=== PATIENT | male | born 1980 | race American Indian/Alaskan Native ===

== ENCOUNTER 2019-03-14 08:40 | Emergency (ER) | payer MEDICAID ==
[2019-03-14 08:46] VITALS: BP 129/75
[2019-03-14] MEDS ORDERED: IBUPROFEN PO ONE (08:59)
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
== END 2019-03-14 10:07 | disposition home or self-care (01) ==
LOC: ED 08:40
DX: S30.0XXA Contusion of lower back and pelvis, initial encounter (principal); Y04.8XXA Assault by other bodily force, initial encounter; Y93.89 Activity, other specified; Y92.89 Other specified places as the place of occurrence of the external cause; Y99.8 Other external cause status
CPT/HCPCS: 72100; 99283

== ENCOUNTER 2019-04-05 13:53 | Emergency (ER) | payer MEDICAID ==
[2019-04-05 14:29] VITALS: BP 133/100
--- NOTE | 2019-04-05 14:29 | Event Note ---
ED Screening Note Date of service: 04/05/19 Time: 14:27 ED Screening Note: 39 y/o male come in for 3 days history of tooth pain. He is aware that he has a bad tooth. Has been taking pain. PMH no Meds none. No dentist. This initial assessment/diagnostic orders/clinical plan/treatment(s) is/are subject to change based on patients health status, clinical progression and re- assessment by fellow clinical providers in the ED. Further treatment and workup at subsequent clinical providers discretion. Patient/guardian urged not to elope from the ED as their condition may be serious if not clinically assessed and managed. Initial orders include:
--- NOTE | 2019-04-05 14:34 | Emergency Department Report ---
ED ENT HPI - General Chief complaint: Dental/Oral Stated complaint: RT SIDE TOOTHACHE Time Seen by Provider: 04/05/19 14:26 Source: patient Mode of arrival: Ambulatory Limitations: No Limitations - History of Present Illness Initial comments: 39 y/o male come in for 3 days history of tooth pain. He is aware that he has a bad tooth. Has been taking pain. PMH no Meds none. No dentist. MD complaint: tooth pain Onset/Timin -: days(s) Location: lower lip Quality: aching, sharp Consistency: constant Improves with: none Context- Dental: history of dental caries, poor dental care Associated Symptoms: toothache - Related Data Previous Rx's Medication Instructions Recorded Last Taken Type Ziprasidone [Geodon] 40 mg PO BID #60 capsule 11/26/14 Unknown Rx Amoxicillin [Amoxicillin TAB] 875 mg PO BID #20 tablet 04/05/19 Unknown Rx Ibuprofen [Motrin 600 MG tab] 600 mg PO Q8H PRN #30 tablet 04/05/19 Unknown Rx Allergies Allergy/AdvReac Type Severity Reaction Status Date / Time No Known Allergies Allergy Verified 11/24/14 13:43 ED Dental HPI - General Chief complaint: Dental/Oral Stated complaint: RT SIDE TOOTHACHE Time Seen by Provider: 04/05/19 14:26 Source: patient Mode of arrival: Ambulatory Limitations: No Limitations - Related Data Previous Rx's Medication Instructions Recorded Last Taken Type Ziprasidone [Geodon] 40 mg PO BID #60 capsule 11/26/14 Unknown Rx Amoxicillin [Amoxicillin TAB] 875 mg PO BID #20 tablet 04/05/19 Unknown Rx Ibuprofen [Motrin 600 MG tab] 600 mg PO Q8H PRN #30 tablet 04/05/19 Unknown Rx Allergies Allergy/AdvReac Type Severity Reaction Status Date / Time No Known Allergies Allergy Verified 11/24/14 13:43 ED Review of Systems ROS: Stated complaint: RT SIDE TOOTHACHE Other details as noted in HPI Comment: All other systems reviewed and negative ED Past Medical Hx - Past Medical History Previous Medical History?: Yes Hx Hypertension: Yes Hx Diabetes: Yes Hx Psychiatric Treatment: No Additional medical history: schizophrenia off meds - Surgical History Past Surgical History?: Yes Additional Surgical History: HERNIA REPAIR - Social History Smoking Status: Current Every Day Smoker Substance Use Type: Alcohol, Marijuana - Medications Home Medications: Home Medications Medication Instructions Recorded Confirmed Last Taken Type Ziprasidone [Geodon] 40 mg PO BID #60 capsule 11/26/14 Unknown Rx Amoxicillin [Amoxicillin TAB] 875 mg PO BID #20 tablet 04/05/19 Unknown Rx Ibuprofen [Motrin 600 MG tab] 600 mg PO Q8H PRN #30 tablet 04/05/19 Unknown Rx ED Physical Exam - General Limitations: No Limitations General appearance: alert, in no apparent distress - Head Head exam: Present: atraumatic, normocephalic - Eye Eye exam: Present: normal appearance - Expanded ENT Exam Expanded Teeth exam: Present: dental caries, gingival enlargement - Respiratory Respiratory exam: Absent: rhonchi - Neurological Exam Neurological exam: Present: alert, oriented X3 - Psychiatric Psychiatric exam: Present: normal affect, normal mood - Skin Skin exam: Present: warm, dry, intact, normal color. Absent: rash ED Course Vital Signs 04/05/19 14:26 Temperature 97.7 F Pulse Rate 56 L Blood Pressure 133/100 O2 Sat by Pulse 98 Oximetry ED Medical Decision Making - Medical Decision Making 39 y/o male come in for 3 days history of tooth pain. He is aware that he has a bad tooth. Has been taking pain. PMH no Meds none. No dentist. Rx for amoxicillin and ibuprofen Critical care attestation.: If time is entered above; I have spent that time in minutes in the direct care of this critically ill patient, excluding procedure time. ED Disposition Clinical Impression: Pain, dental Disposition: DC-01 TO HOME OR SELFCARE Is pt being admited?: No Does the pt Need Aspirin: No Condition: Stable Instructions: Toothache (ED) Additional Instructions: take medication as prescribed. Prescriptions: Amoxicillin [Amoxicillin TAB] 875 mg PO BID #20 tablet Ibuprofen [Motrin 600 MG tab] 600 mg PO Q8H PRN #30 tablet PRN Reason: Pain Referrals: [facility] [Outside] - 3-5 Days [facility] [Outside] - 3-5 Days
== END 2019-04-05 14:51 | disposition home or self-care (01) ==
LOC: ED 13:53
DX: K08.89 Other specified disorders of teeth and supporting structures (principal); I10 Essential (primary) hypertension; E11.9 Type 2 diabetes mellitus without complications; F20.9 Schizophrenia, unspecified; F17.200 Nicotine dependence, unspecified, uncomplicated; F12.10 Cannabis abuse, uncomplicated; Z79.899 Other long term (current) drug therapy
CPT/HCPCS: 99282

== ENCOUNTER 2019-08-23 15:22 | Emergency (ER) | payer MEDICAID ==
[2019-08-23] MEDS ORDERED: IBUPROFEN 600 MG TAB PO ONE ×2 (16:15→16:17)
--- NOTE | 2019-08-23 16:17 | Emergency Department Report ---
Blank Doc - Documentation Documentation: 39-year-old male that presents with left flank pain.\ This initial assessment/diagnostic orders/clinical plan/treatment(s) is/are subject to change based on patient's health status, clinical progression and re- assessment by fellow clinical providers in the ED. Further treatment and workup at subsequent clinical providers discretion. Patient/guardians urged not to elope from the ED as their condition may be serious if not clinically assessed and managed. Initial orders include: 1- Patient sent to [facility] for further evaluation and treatment 2- labs 3- UA 4- motrin-RN to repeat vitals
[2019-08-23 16:46] LABS: Basophils % (Auto) 0.3 % (0.0-1.8); Eosinophils % (Auto) 0.2 % (0.0-4.3); Hematocrit 39.2 % (35.5-45.6); Lymphocytes # (Auto) 0.3 K/mm3 (1.2-5.4); Mean Corpuscular HGB Conc 33 % (32-34); Mean Corpuscular Volume 93 fl (84-94); Monocytes # (Auto) 0.5 K/mm3 (0.0-0.8); Monocytes % (Auto) 8.9 % (0.0-7.3); Platelet Count 223 K/mm3 (140-440); Red Cell Distribution Width 16.1 % (13.2-15.2)
[2019-08-23 16:58] LABS: Bilirubin,Urine NEG (Negative); Blood,Urine SM (Negative); Color,Urine Yellow (Yellow); Mucus,Urine 1+ /HPF
[2019-08-23 17:00] LABS: BUN/Creatinine Ratio 11; Blood Urea Nitrogen 9 mg/dL (9-20); Calcium 8.9 mg/dL (8.4-10.2); Hemolysis Index 4
--- NOTE | 2019-08-23 17:50 | XRay Report ---
CHEST 2 VIEWS INDICATION / CLINICAL INFORMATION: fever flank pain. COMPARISON: None available. FINDINGS: SUPPORT DEVICES: None. HEART / MEDIASTINUM: No significant abnormality. LUNGS / PLEURA: No significant pulmonary or pleural abnormality. No pneumothorax. ADDITIONAL FINDINGS: No significant additional findings. IMPRESSION: 1. No acute findings. Signer Name: Gage Ryan MD Signed: 08/23/2019 5:46 PM Workstation Name: [id number]
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
--- NOTE | 2019-08-23 19:44 | Cat Scan Report ---
CT abdomen pelvis w con INDICATION: fever back pain. TECHNIQUE: All CT scans at this location are performed using the following dose modulation technique: Automated exposure control. CONTRAST: Isovue-300, 100 cc IV injection. COMPARISON: None available. CT ABDOMEN: Evaluation of the lung bases demonstrates mild tree-in-bud inflammation at the lower lobe s. The parenchymal organs are unremarkable in appearance. Negative for abdominal mass, fluid or inflamma tion. The bowel is not dilated or thickened. CT PELVIS: Negative for mass, fluid or inflammation. A small amount of free fluid is noted. IMPRESSION: 1. Mild basilar pneumonia. 2. Small amount of pelvic free fluid. Signer Name: Antonio Kirkland MD Signed: 08/23/2019 7:39 PM Workstation Name: [id number]
[2019-08-23 20:15] VITALS: BP 112/55
== END 2019-08-23 20:15 | disposition home or self-care (01) ==
LOC: ED 15:22
DX: J18.9 Pneumonia, unspecified organism (principal); M54.5 Low back pain; I10 Essential (primary) hypertension; E11.9 Type 2 diabetes mellitus without complications; F20.9 Schizophrenia, unspecified; F17.200 Nicotine dependence, unspecified, uncomplicated; F14.10 Cocaine abuse, uncomplicated; Z98.890 Other specified postprocedural states; Z79.1 Long term (current) use of non-steroidal anti-inflammatories (NSAID); Z79.2 Long term (current) use of antibiotics; Z79.899 Other long term (current) drug therapy
CPT/HCPCS: 36415; 71046; 74177; 80048; 81001; 82140; 85025; 87040; 87086; 99284; Q9967

== ENCOUNTER 2020-05-29 18:38 | Emergency (ER) | payer MEDICAID ==
[2020-05-29 18:54] VITALS: BP 121/60
[2020-05-29] MEDS ORDERED: IBUPROFEN 800 MG TAB PO ONE (21:28)
--- NOTE | 2020-05-29 21:47 | Emergency Department Report ---
ED Back Pain/Injury HPI - General Chief Complaint: Back Pain/Injury Stated Complaint: BACK PAIN Time Seen by Provider: 05/29/20 21:26 Source: patient Limitations: No Limitations - History of Present Illness Initial Comments: Pt is a 40 y/o aam with hx of low back pain , DMII, and HTN who presents for low back strain after lifting furniture 2 days ago. pt denies fall or trauma, pt states he felt pull in his low back while lifting. pain is described as 4/10 aching burning. pain radiates to left buttocks, pt denies numbess, no weakness , no paralysis. pain is exacerbated by bending , twisting and bending. pain is relieved by rest. pt denies dysuria, frequency, or urgency. There is no hematuria, remains ambulatory to baseline with steady gait per patient. pt denies loss or decrease in bowel or bladder function. MD Complaint: back injury Similar Symptoms Previously: Yes Place: home - Related Data Previous Rx's Medication Instructions Recorded Last Taken Type Ziprasidone [Geodon] 40 mg PO BID #60 capsule 11/26/14 Unknown Rx Amoxicillin [Amoxicillin TAB] 875 mg PO BID #20 tablet 04/05/19 Unknown Rx Ibuprofen [Motrin 600 MG tab] 600 mg PO Q8H PRN #30 tablet 04/05/19 Unknown Rx Ciprofloxacin HCl [Ciprofloxacin 500 mg PO Q12HR #20 tab 08/23/19 Unknown Rx TAB] HYDROcodone/APAP 5-325 [Asher 1 - 2 each PO Q6HR PRN #10 tablet 08/23/19 Unknown Rx 5/325] Ibuprofen [Motrin 800 MG tab] 800 mg PO Q8HR PRN #20 tablet 08/23/19 Unknown Rx Cyclobenzaprine [Flexeril] 10 mg PO BID PRN #20 tablet 05/29/20 Unknown Rx Menthol/Camphor [Linden Schurz 1 applicatio TP TID PRN #1 tube 05/29/20 Unknown Rx Ointment] Naproxen 500 mg PO BID PRN #30 tablet 05/29/20 Unknown Rx Allergies Allergy/AdvReac Type Severity Reaction Status Date / Time No Known Allergies Allergy Verified 11/24/14 13:43 ED Review of Systems ROS: Stated complaint: BACK PAIN Other details as noted in HPI Constitutional: denies: chills, fever Eyes: denies: eye pain, eye discharge, vision change ENT: denies: ear pain, throat pain Respiratory: denies: cough, shortness of breath, wheezing Cardiovascular: denies: chest pain, palpitations Endocrine: no symptoms reported Gastrointestinal: denies: abdominal pain, nausea, diarrhea Genitourinary: denies: urgency, dysuria Musculoskeletal: back pain, arthralgia Skin: denies: rash, lesions Neurological: denies: headache, weakness, paresthesias, vertigo Psychiatric: denies: anxiety, depression Hematological/Lymphatic: denies: easy bleeding, easy bruising ED Past Medical Hx - Past Medical History Hx Hypertension: Yes Hx Diabetes: Yes Hx Psychiatric Treatment: No Additional medical history: schizophrenia off meds - Surgical History Additional Surgical History: HERNIA REPAIR - Social History Smoking Status: Current Every Day Smoker Substance Use Type: Cocaine - Medications Home Medications: Home Medications Medication Instructions Recorded Confirmed Last Taken Type Ziprasidone [Geodon] 40 mg PO BID #60 capsule 11/26/14 Unknown Rx Amoxicillin [Amoxicillin TAB] 875 mg PO BID #20 tablet 04/05/19 Unknown Rx Ibuprofen [Motrin 600 MG tab] 600 mg PO Q8H PRN #30 tablet 04/05/19 Unknown Rx Ciprofloxacin HCl [Ciprofloxacin 500 mg PO Q12HR #20 tab 08/23/19 Unknown Rx TAB] HYDROcodone/APAP 5-325 [Asher 1 - 2 each PO Q6HR PRN #10 tablet 08/23/19 Unknown Rx 5/325] Ibuprofen [Motrin 800 MG tab] 800 mg PO Q8HR PRN #20 tablet 08/23/19 Unknown Rx Cyclobenzaprine [Flexeril] 10 mg PO BID PRN #20 tablet 05/29/20 Unknown Rx Menthol/Camphor [Linden Schurz 1 applicatio TP TID PRN #1 tube 05/29/20 Unknown Rx Ointment] Naproxen 500 mg PO BID PRN #30 tablet 05/29/20 Unknown Rx ED Physical Exam - General Limitations: No Limitations General appearance: alert, in no apparent distress - Head Head exam: Present: atraumatic, normocephalic - Eye Eye exam: Present: normal appearance - ENT ENT exam: Present: mucous membranes moist - Neck Neck exam: Present: normal inspection, full ROM. Absent: tenderness - Respiratory Respiratory exam: Present: normal lung sounds bilaterally. Absent: respiratory distress, wheezes, stridor - Cardiovascular Cardiovascular Exam: Present: regular rate, normal rhythm, normal heart sounds. Absent: systolic murmur, diastolic murmur, rubs, gallop - GI/Abdominal GI/Abdominal exam: Present: soft, normal bowel sounds. Absent: distended, tenderness - Rectal Rectal exam: Present: deferred - Extremities Exam Extremities exam: Present: normal inspection, full ROM. Absent: tenderness - Back Exam Back exam: Present: normal inspection, muscle spasm, vertebral tenderness. Absent: CVA tenderness (R), CVA tenderness (L) - Expanded Back Exam Expanded Back exam: Absent: saddle anesthesia Back exam: Positive Straight Leg Raise: Left, Negative Straight Leg Raising: Right - Neurological Exam Neurological exam: Present: alert, oriented X3, CN II-XII intact, normal gait, reflexes normal. Absent: motor sensory deficit - Expanded Neurological Exam Expanded Patient oriented to: Present: person, place, time Speech: Present: fluid speech Motor strength exam: RLE: 5, LLE: 5 DTR: ankle (R): 2+, ankle (L): 2+ Best Eye Response (Darin): (4) open spontaneously Best Motor Response (Darin): (6) obeys commands Best Verbal Response (Norton): (5) oriented Norton Total: 15 - Psychiatric Psychiatric exam: Present: normal affect, normal mood - Skin Skin exam: Present: warm, dry, intact, normal color. Absent: rash ED Course Vital Signs 05/29/20 18:51 Temperature 98.1 F Pulse Rate 72 Respiratory 20 Rate Blood Pressure 121/60 [Right] O2 Sat by Pulse 98 Oximetry ED Medical Decision Making - Medical Decision Making pain is improved with nsaids given in ed. pt is in usual location, and intensity, as previous low back strains. pt denies urinary symptoms, there has been no trauma or fall, low back muscular pain is reproducible to deep palpation & Straight leg left. There are no neuro symptomns, This is likely low back strain, plan, dc to home , back exercises, moist heat therapy, nsaids prn, follow up with primary care doctor in 2-3 days. Critical care attestation.: If time is entered above; I have spent that time in minutes in the direct care of this critically ill patient, excluding procedure time. ED Disposition Clinical Impression: Low back strain Qualifiers: Encounter type: initial encounter Qualified Code(s): S39.012A - Strain of muscle, fascia and tendon of lower back, initial encounter Disposition: TO HOME OR SELFCARE Is pt being admited?: No Does the pt Need Aspirin: No Condition: Stable Instructions: Low Back Strain (ED), Core Strengthening Exercises (GEN) Prescriptions: Cyclobenzaprine [Flexeril] 10 mg PO BID PRN #20 tablet PRN Reason: Muscle Spasm Naproxen 500 mg PO BID PRN #30 tablet PRN Reason: Pain Menthol/Camphor [Linden Schurz Ointment] 1 applicatio TP TID PRN #1 tube PRN Reason: PAIN Referrals: RICHARD SARMIENTO MD [Staff Physician] - 3-5 Days Forms: Work/School Release Form(ED) Time of Disposition: 22:01
== END 2020-05-29 22:05 | disposition home or self-care (01) ==
LOC: ED 18:38
DX: S39.012A Strain of muscle, fascia and tendon of lower back, initial encounter (principal); I10 Essential (primary) hypertension; E11.9 Type 2 diabetes mellitus without complications; F20.9 Schizophrenia, unspecified; F17.200 Nicotine dependence, unspecified, uncomplicated; F14.10 Cocaine abuse, uncomplicated; Z79.1 Long term (current) use of non-steroidal anti-inflammatories (NSAID); Z79.2 Long term (current) use of antibiotics; Z79.899 Other long term (current) drug therapy; X50.0XXA Overexertion from strenuous movement or load, initial encounter; Y93.89 Activity, other specified; Y92.89 Other specified places as the place of occurrence of the external cause; Y99.8 Other external cause status
CPT/HCPCS: 99282

== ENCOUNTER 2020-06-21 12:57 | Emergency (ER) | payer MEDICAID ==
[2020-06-21 13:37] VITALS: BP 118/66
--- NOTE | 2020-06-21 16:36 | Emergency Department Report ---
Chief Complaint: Hyperglycemia Stated Complaint: HYPERGLYCEMIA Time Seen by Provider: 06/21/20 16:33 - HPI History of Present Illness: Patient is a 40-year-old male presents emergency room with complaints of a blood sugar check. He states that he was previously diagnosed with diabetes and used to be on medication but has not taken medication since approximately 2014. He denies any symptoms at all. He denies any nausea, vomiting, diarrhea, fever, cough, abdominal pain, chest pain, shortness of breath, urinary symptoms. He denies any other past medical history. No allergies to medications. He denies any SI or HI. Vitals are normal Blood glucose point of care performed by nurse and is 81 On exam: Non toxic appearing, no acute distress atraumatic, normocephalic normal appearance of the eyes, EOMI, no periorbital edema or ecchymosis moist mucus membranes No respiratory distress, no accessory muscle use A&O x4, no focal neuro deficit skin is warm, dry Patient is presenting for a blood sugar check He denies any symptoms His blood glucose is 81 Advised patient that this is a normal reading and where his blood sugar should be Patient will be referred to primary care doctor Discussed strict return precautions Medical screen examination performed and there is no threat to life or limb at this time - Exam Vital Signs: Vital Signs 06/21/20 13:35 Temperature 98.6 F Pulse Rate 63 Respiratory 18 Rate Blood Pressure 118/66 [Right] O2 Sat by Pulse 98 Oximetry MSE screening note: Focused history and physical exam performed. ED Disposition for MSE Clinical Impression: Encounter for medical screening examination Disposition: MED SCREENING EXAM-LEFT Is pt being admited?: No Does the pt Need Aspirin: No Condition: Stable Additional Instructions: Increase your water intake. Follow-up with a primary care doctor. Return to emergency room for any new or worsening symptoms. Referrals: MANGO PATRICIA MD [Staff Physician] - 2-3 Days [facility] [Provider Group] - 2-3 Days [facility], [LAB/CONTRACT] - 2-3 Days Time of Disposition: 16:35 Print Language: SURINAMESE
== END 2020-06-21 17:03 | disposition left against medical advice (07) ==
LOC: ED 12:57
DX: E11.65 Type 2 diabetes mellitus with hyperglycemia (principal); Z00.00 Encounter for general adult medical examination without abnormal findings; Z53.21 Procedure and treatment not carried out due to patient leaving prior to being seen by health care provider
CPT/HCPCS: 82962

== ENCOUNTER 2020-12-31 13:01 | Emergency (ER) | payer MEDICAID ==
[2020-12-31 15:55] VITALS: BP 124/74
== END 2020-12-31 20:10 | disposition left against medical advice (07) ==
LOC: ED 13:01
DX: R05 Cough (principal); Z53.21 Procedure and treatment not carried out due to patient leaving prior to being seen by health care provider

== ENCOUNTER 2021-01-20 21:00 | Emergency (ER) | payer MEDICAID | END 2021-01-21 02:35 | LOC: ED 21:00 | DX: Z00.8 Encounter for other general examination (principal); Z53.21 Procedure and treatment not carried out due to patient leaving prior to being seen by health care provider ==

== ENCOUNTER 2021-03-30 18:49 | Emergency (ER) | payer MEDICAID | END 2021-03-30 18:50 | disposition left against medical advice (07) | LOC: ED 18:49 | DX: M54.9 Dorsalgia, unspecified (principal); Z53.21 Procedure and treatment not carried out due to patient leaving prior to being seen by health care provider ==

== ENCOUNTER 2021-05-30 10:56 | Emergency (ER) | payer MEDICAID ==
[2021-05-30 11:43] VITALS: BP 113/57
[2021-05-30] MEDS ORDERED: ACETAMINOPHEN 500 MG TAB PO ONE (11:59)
[2021-05-30] MEDS ORDERED: KETOROLAC 30 MG/1 ML INJ IM ONE (11:59)
--- NOTE | 2021-05-30 12:00 | Emergency Department Report ---
ED General Adult HPI - General Chief complaint: Abdominal Pain Stated complaint: Right-sided lateral thoracic pain PUI?: No Time Seen by Provider: 05/30/21 11:48 Source: patient, RN notes reviewed, old records reviewed Mode of arrival: Ambulatory Limitations: No Limitations - History of Present Illness Initial comments: The patient was evaluated in the emergency department for symptoms described in the history of present illness. He/she was evaluated in the context of the global COVID-19 pandemic, which necessitated consideration that the patient might be at risk for infection with the virus that causes COVID-19. Institutional protocols and algorithms that pertain to the evaluation of patients at risk for COVID-19 are in a state of rapid change based on information released by regulatory bodies including the CDC and federal and state organizations. These policies and algorithms were followed during the patient's care in the emergency department. Please note that these policies, procedures and recommendations changed on a rapid basis. The patient is a 41-year-old gentleman. He is right-hand dominant. He presents to the ER today with complaints of reproducible right-sided lateral thoracic muscular pain. 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 The patient denies headache, neck pain, chest pain, abdominal pain, shortness of breath, urinary symptoms, DVT, travel, surgery, immobilization. The patient symptoms were improved with Tylenol and with Toradol. At the moment, the patient is sleeping comfortably on his chair, and is endorsing readiness for discharge. -: Gradual, hour(s) Location: right (Lateral thoracic) Radiation: non-radiation Quality: aching Consistency: intermittent Improves with: medication, rest Worsens with: movement Associated Symptoms: denies other symptoms - Related Data Previous Rx's Medication Instructions Recorded Last Taken Type Ziprasidone [Geodon] 40 mg PO BID #60 capsule 11/26/14 Unknown Rx Amoxicillin [Amoxicillin TAB] 875 mg PO BID #20 tablet 04/05/19 Unknown Rx Ibuprofen [Motrin 600 MG tab] 600 mg PO Q8H PRN #30 tablet 04/05/19 Unknown Rx Ciprofloxacin HCl [Ciprofloxacin 500 mg PO Q12HR #20 tab 08/23/19 Unknown Rx TAB] HYDROcodone/APAP 5-325 [[place] 1 - 2 each PO Q6HR PRN #10 tablet 08/23/19 Unknown Rx 5/325] Ibuprofen [Motrin 800 MG tab] 800 mg PO Q8HR PRN #20 tablet 08/23/19 Unknown Rx Cyclobenzaprine [Flexeril] 10 mg PO BID PRN #20 tablet 05/29/20 Unknown Rx Menthol/Camphor [Lula Heber 1 applicatio TP TID PRN #1 tube 05/29/20 Unknown Rx Ointment] Naproxen 500 mg PO BID PRN #30 tablet 05/29/20 Unknown Rx Allergies Allergy/AdvReac Type Severity Reaction Status Date / Time No Known Allergies Allergy Verified 11/24/14 13:43 ED Review of Systems ROS: Stated complaint: RT SIDE BODY PAIN Other details as noted in HPI Comment: All other systems reviewed and negative Musculoskeletal: arthralgia, myalgia ED Past Medical Hx - Past Medical History Hx Hypertension: Yes Hx Diabetes: Yes Hx Psychiatric Treatment: No Additional medical history: schizophrenia off meds - Surgical History Additional Surgical History: HERNIA REPAIR - Social History Smoking Status: Current Every Day Smoker Substance Use Type: Alcohol, Cocaine, Marijuana - Medications Home Medications: Home Medications Medication Instructions Recorded Confirmed Last Taken Type Ziprasidone [Geodon] 40 mg PO BID #60 capsule 11/26/14 Unknown Rx Amoxicillin [Amoxicillin TAB] 875 mg PO BID #20 tablet 04/05/19 Unknown Rx Ibuprofen [Motrin 600 MG tab] 600 mg PO Q8H PRN #30 tablet 04/05/19 Unknown Rx Ciprofloxacin HCl [Ciprofloxacin 500 mg PO Q12HR #20 tab 08/23/19 Unknown Rx TAB] HYDROcodone/APAP 5-325 [[place] 1 - 2 each PO Q6HR PRN #10 tablet 08/23/19 Unknown Rx 5/325] Ibuprofen [Motrin 800 MG tab] 800 mg PO Q8HR PRN #20 tablet 08/23/19 Unknown Rx Cyclobenzaprine [Flexeril] 10 mg PO BID PRN #20 tablet 05/29/20 Unknown Rx Menthol/Camphor [Lula Heber 1 applicatio TP TID PRN #1 tube 05/29/20 Unknown Rx Ointment] Naproxen 500 mg PO BID PRN #30 tablet 05/29/20 Unknown Rx ED Physical Exam - General Limitations: No Limitations General appearance: alert, in no apparent distress - Head Head exam: Present: atraumatic, normocephalic - Eye Eye exam: Present: normal appearance, EOMI. Absent: nystagmus - ENT ENT exam: Present: normal exam, normal orophraynx, mucous membranes moist, normal external ear exam - Neck Neck exam: Present: normal inspection, full ROM. Absent: tenderness, meningismus - Respiratory Respiratory exam: Present: normal lung sounds bilaterally, chest wall tenderness. Absent: respiratory distress, wheezes, rales, rhonchi, stridor, decreased breath sounds - Cardiovascular Cardiovascular Exam: Present: regular rate, normal rhythm, normal heart sounds. Absent: bradycardia, tachycardia, irregular rhythm, systolic murmur, diastolic murmur, rubs, gallop - GI/Abdominal GI/Abdominal exam: Present: soft. Absent: distended, tenderness, guarding, rebound, rigid, pulsatile mass - Rectal Rectal exam: Present: deferred - Extremities Exam Extremities exam: Present: normal inspection, full ROM, other (2+ pulses noted in the bilateral upper and lower extremities. There is no palpable cord. negative Homans sign. Muscular compartments are soft. The pelvis is stable.). Absent: pedal edema, calf tenderness - Back Exam Back exam: Present: normal inspection, paraspinal tenderness. Absent: tenderness, CVA tenderness (R), CVA tenderness (L), vertebral tenderness - Neurological Exam Neurological exam: Present: alert, oriented X3, normal gait, other (No facial droop. Tongue midline. Extraocular movements intact bilaterally. Facial sensation intact to light touch in V1, V2, V3 distribution bilaterally. 5 and a 5 strength in 4 extremities. Sensation intact to light touch in 4 extremities.). Absent: motor sensory deficit - Psychiatric Psychiatric exam: Present: normal affect, normal mood - Skin Skin exam: Present: warm, dry, intact, normal color. Absent: rash ED Course Vital Signs 05/30/21 11:42 Temperature 98.3 F Pulse Rate 69 Respiratory 20 Rate Blood Pressure 113/57 O2 Sat by Pulse 98 Oximetry ED Medical Decision Making - Lab Data Vital Signs 05/30/21 11:42 Temperature 98.3 F Pulse Rate 69 Respiratory 20 Rate Blood Pressure 113/57 O2 Sat by Pulse 98 Oximetry Lab Results 05/30/21 Range/Units Unknown Urine Color Yellow (Yellow) Urine Turbidity Clear (Clear) Urine pH 5.0 (5.0-7.0) Ur Specific [place] 1.035 H (1.003-1.030) Urine Protein 30 mg/dl (Negative) mg/dL Urine Glucose (UA) Negative (Negative) mg/dL Urine Ketones Negative (Negative) mg/dL Urine Blood Negative (Negative) Urine Nitrite Negative (Negative) Urine Bilirubin 2 (Negative) Urine Ictotest Not Reportable Urine Urobilinogen 1.0 (<2.0) mg/dL Ur Leukocyte Esterase 1 (Negative) Urine WBC (Auto) 5.0 (0.0-6.0) /HPF Ur Renal Epithelial Cell 0 /LPF Calcium Oxalate Crystal 4+ Urine Mucus 2+ /HPF - EKG Data -: EKG Interpreted by Ks EKG shows normal: sinus rhythm Rate: normal - EKG Data 05/30/21 13:10 EKG is interpreted at 12: 03 Sinus rhythm, rate 63 bpm. Normal axis, normal P wave axis. High left ventricular voltage. Abnormal EKG. Not a STEMI. There is no prior for comparison. - Radiology Data Radiology results: pending, report reviewed, image reviewed CHEST 2 VIEWS INDICATION / CLINICAL INFORMATION: right lateral thoacic pain. COMPARISON: July 2019 FINDINGS: SUPPORT DEVICES: None. HEART / MEDIASTINUM: No significant abnormality. LUNGS / PLEURA: No significant pulmonary or pleural abnormality. No pneumothorax. ADDITIONAL FINDINGS: No significant additional findings. IMPRESSION: 1. No acute findings. Signer Name: Trey Vernon MD Signed: 05/30/2021 11:41 AM Workstation Name: [facility] - Medical Decision Making Differential diagnosis, including but not limited to: Costochondritis, pneumonia, pneumonitis, GERD, gastritis, hiatal hernia Assessment and plan: 41-year-old gentleman, who is afebrile, with reassuring vital signs, who is clinically sober, with reproducible lateral chest wall pain, without evidence of redness, pus, streaking or vesicles, who is not currently tachycardic, tachypneic or hypoxic, who denies DVT and pulmonary embolism risk factors, who is low risk by Wells criteria by PERC score, with an unremarkable EKG, and an unremarkable urinalysis, who is clinically improved as a supportive care. Rest, ice, compression elevation therapy, Tylenol and Motrin as needed for pain, alternate ice packs and heat packs, follow-up with outpatient primary care. Critical care attestation.: If time is entered above; I have spent that time in minutes in the direct care of this critically ill patient, excluding procedure time. ED Disposition Clinical Impression: Chest wall pain Disposition: HOME / SELF CARE / HOMELESS Is pt being admited?: No Does the pt Need Aspirin: No Condition: Good Instructions: Costochondritis Additional Instructions: Patient may alternate ice packs and heat packs as needed for physical pain. Please take Motrin [id number], 400 mg with food, every 6 hours as needed for pain, alternating with Tylenol/acetaminophen, 650 mg by mouth, every 6 hours, as needed for pain. Please follow-up with your primary care doctor within the next 2 weeks for repeat checkup and evaluation. Please return to the emergency room right away with new pain, worsened pain, migration of pain, projectile vomiting, change in mental status, confusion, inability to tolerate liquid feeds, new, worsened or different symptoms not present on the initial emergency room evaluation. Referrals: [facility] [Provider Group] - 3-[address] [facility] [Outside] - 3-5 Days Forms: Work/School Release Form(ED)
--- NOTE | 2021-05-30 12:00 | Emergency Department Report ---
ED GI Bleed HPI - General Chief complaint: Abdominal Pain Stated complaint: RT SIDE BODY PAIN Time Seen by Provider: 05/30/21 11:48 Source: patient Mode of arrival: Ambulatory Limitations: No Limitations - Related Data Previous Rx's Medication Instructions Recorded Last Taken Type Ziprasidone [Geodon] 40 mg PO BID #60 capsule 11/26/14 Unknown Rx Amoxicillin [Amoxicillin TAB] 875 mg PO BID #20 tablet 04/05/19 Unknown Rx Ibuprofen [Motrin 600 MG tab] 600 mg PO Q8H PRN #30 tablet 04/05/19 Unknown Rx Ciprofloxacin HCl [Ciprofloxacin 500 mg PO Q12HR #20 tab 08/23/19 Unknown Rx TAB] HYDROcodone/APAP 5-325 [[place] 1 - 2 each PO Q6HR PRN #10 tablet 08/23/19 Unknown Rx 5/325] Ibuprofen [Motrin 800 MG tab] 800 mg PO Q8HR PRN #20 tablet 08/23/19 Unknown Rx Cyclobenzaprine [Flexeril] 10 mg PO BID PRN #20 tablet 05/29/20 Unknown Rx Menthol/Camphor [Lenox Naylor 1 applicatio TP TID PRN #1 tube 05/29/20 Unknown Rx Ointment] Naproxen 500 mg PO BID PRN #30 tablet 05/29/20 Unknown Rx Allergies Allergy/AdvReac Type Severity Reaction Status Date / Time No Known Allergies Allergy Verified 11/24/14 13:43 ED Review of Systems ROS: Stated complaint: RT SIDE BODY PAIN Other details as noted in HPI ED Past Medical Hx - Past Medical History Hx Hypertension: Yes Hx Diabetes: Yes Hx Psychiatric Treatment: No Additional medical history: schizophrenia off meds - Surgical History Additional Surgical History: HERNIA REPAIR - Social History Smoking Status: Current Every Day Smoker Substance Use Type: Alcohol, Cocaine, Marijuana - Medications Home Medications: Home Medications Medication Instructions Recorded Confirmed Last Taken Type Ziprasidone [Geodon] 40 mg PO BID #60 capsule 11/26/14 Unknown Rx Amoxicillin [Amoxicillin TAB] 875 mg PO BID #20 tablet 04/05/19 Unknown Rx Ibuprofen [Motrin 600 MG tab] 600 mg PO Q8H PRN #30 tablet 04/05/19 Unknown Rx Ciprofloxacin HCl [Ciprofloxacin 500 mg PO Q12HR #20 tab 08/23/19 Unknown Rx TAB] HYDROcodone/APAP 5-325 [[place] 1 - 2 each PO Q6HR PRN #10 tablet 08/23/19 Unknown Rx 5/325] Ibuprofen [Motrin 800 MG tab] 800 mg PO Q8HR PRN #20 tablet 08/23/19 Unknown Rx Cyclobenzaprine [Flexeril] 10 mg PO BID PRN #20 tablet 05/29/20 Unknown Rx Menthol/Camphor [Lenox Naylor 1 applicatio TP TID PRN #1 tube 05/29/20 Unknown Rx Ointment] Naproxen 500 mg PO BID PRN #30 tablet 05/29/20 Unknown Rx ED Physical Exam - General Limitations: No Limitations ED Course Vital Signs 05/30/21 11:42 Temperature 98.3 F Pulse Rate 69 Respiratory 20 Rate Blood Pressure 113/57 O2 Sat by Pulse 98 Oximetry Critical care attestation.: If time is entered above; I have spent that time in minutes in the direct care of this critically ill patient, excluding procedure time. ED Disposition Condition: Stable
--- NOTE | 2021-05-30 12:46 | XRay Report ---
CHEST 2 VIEWS INDICATION / CLINICAL INFORMATION: right lateral thoacic pain. COMPARISON: July 2019 FINDINGS: SUPPORT DEVICES: None. HEART / MEDIASTINUM: No significant abnormality. LUNGS / PLEURA: No significant pulmonary or pleural abnormality. No pneumothorax. ADDITIONAL FINDINGS: No significant additional findings. IMPRESSION: 1. No acute findings. Signer Name: Trey Vernno MD Signed: 05/30/2021 12:41 PM Workstation Name: [id number]
[2021-05-30 14:08] LABS: Color,Urine Yellow (Yellow)
[2021-05-30 14:09] LABS: Bilirubin,Urine 2 (Negative); Blood,Urine Negative (Negative)
[2021-05-30 14:12] LABS: Calcium Oxalate Crystals,Urine 4+
[2021-05-30 14:13] LABS: Mucus,Urine 2+ /HPF
[2021-05-30 14:29] LABS: Renal Epithelial Cells,Urine 0 /LPF
--- NOTE | 2021-06-03 14:35 | Electrocardiograph Report ---
[facility] Test Date: 2021-05-30 Test Time: 12:03:26 Pat Name: LINUS SHANKS Department: Room: Gender: M Commercial Illustrator: reuben : 1980 Requested By: LINDA TSANG Order Number: [id number] Reading MD: Tommy Adkins Measurements Intervals [place] Rate: 63 P: 51 NH: 127 QRS: 64 QRSD: 73 T: 57 QT: 412 QTc: 422 Interpretive Statements Sinus rhythm No previous ECG available for comparison Electronically Signed On 06-03-2021 14:34:35 EDT by Tommy Adkins
== END 2021-05-30 15:45 | disposition home or self-care (01) ==
LOC: ED 10:56
DX: R07.89 Other chest pain (principal); I10 Essential (primary) hypertension; E11.8 Type 2 diabetes mellitus with unspecified complications; Z98.890 Other specified postprocedural states; F17.290 Nicotine dependence, other tobacco product, uncomplicated
CPT/HCPCS: 71046; 81001; 93005; 96372; 99284; J1885